=== PATIENT | male | born 1950 | race Caucasian/White ===

== ENCOUNTER → 2018-03-17 | Outpatient (CLI) | payer MEDICARE, BC ==
--- NOTE | 2018-03-17 09:56 | RADIOLOGY REPORT (SQ) ---
EXAM DESCRIPTION: MRI LT LOWER JOINT WITHOUT COMPLETED DATE/TIME: 03/17/2018 8:10 am REASON FOR STUDY: PAIN IN LEFT KNEE (M25.562) M25.562 PAIN IN LEFT KNEE COMPARISON: None. TECHNIQUE: Leftknee images acquired and stored on PACS. Multiplanar images include fat sensitive se quences as T1, water sensitive sequences as FST2 or STIR, cartilage sensitive sequences as FSPD, and gradient echo sequences. LIMITATIONS: None. FINDINGS: JOINT AND BURSAE: No effusion. BONE CORTEX AND MARROW: No alteration of signal to suggest marrow replacement. No worrisome bone lesi ons. No occult fracture. ACL: Intact. No degeneration or ganglion cyst. PCL: Intact. MCL: Intact. No periligamentous edema or fluid. LCL: Intact. No periligamentous edema or fluid. MEDIAL MENISCUS: Extensive complex tear posterior horn and root. Mild extrusion. LATERAL MENISCUS: No tears. No abnormal signal. MEDIAL COMPARTMENT: Generalized slightly irregular chondral thinning without measurable focal defects or reactive bone cysts. No significant osteophytes. LATERAL COMPARTMENT: Mild generalized thinning without focal defects or reactive bone change. PATELLA: Normal patellar location. Mild chondral thinning without focal defects or reactive bone cys ts. EXTENSOR MECHANISM: Intact. Quadriceps and patella tendons normal. SOFT TISSUES: Adjacent muscles and subcutaneous tissues normal. Normal flow void in popliteal artery and vein. OTHER: No other significant finding. IMPRESSION: 1. Medial meniscus tear. TECHNICAL DOCUMENTATION: JOB ID: [id number] [employer]- All Rights Reserved Reading location - IP/workstation name: [email or web address]
== END ==
LOC: RAD 07:02
PROVIDERS: ATTEND Orthopaedic Surgery
DX: M25.562 Pain in left knee (principal); S83.242A Other tear of medial meniscus, current injury, left knee, initial encounter; X58.XXXA Exposure to other specified factors, initial encounter

== ENCOUNTER → 2019-11-10 | Outpatient (CLI) | payer MEDICARE, BC ==
--- NOTE | 2019-11-11 09:04 | RADIOLOGY REPORT (SQ) ---
EXAM DESCRIPTION: MRI LUMBAR SPINE WITHOUT COMPLETED DATE/TIME: 11/10/2019 4:56 pm REASON FOR STUDY: M54.5 LOW BACK PAIN M54.5 LOW BACK PAIN COMPARISON: None. TECHNIQUE: Sagittal and Axial imaging includes T1, T2, STIR and gradient echo sequences. Coronal T2/ HASTE imaging. LIMITATIONS: Motion. FINDINGS: VISUALIZED UPPER ABDOMEN: Limited evaluation. No acute or suspicious findings suggested. SEGMENTATION: No transitional anatomy. The lowest well-developed disc space is labeled L5-S1. ALIGNMENT: Moderate sigmoid scoliosis. Slight anterolisthesis of L2 relative to L1. VERTEBRAE: Intact. BONE MARROW: Normal. No marrow replacement or reactive changes. DISC SIGNAL: Desiccation multiple levels. POSTERIOR ELEMENTS: Generally intact. No pars defect evident. HARDWARE: None in the spine. CORD AND CONUS: Normal in size and signal intensity. Conus at the appropriate level. SOFT TISSUES: No aortic aneurysm seen. No bulky retroperitoneal adenopathy or mass. No paraspinal mas s or fluid. L1-L2: Mild spinal stenosis due to disc bulge, malalignment and facet arthropathy. Mild neural bonnie inal narrowing bilaterally. L2-L3: Mild spinal stenosis. Mild neural foraminal narrowing bilaterally. L3-L4: Mild spinal stenosis. Moderate neural foraminal narrowing bilaterally. L4-L5: Mild spinal stenosis. Small central disc protrusion. Moderate neural foraminal narrowing skylar aterally. L5-S1: Central annular fissure. Facet arthropathy. Mild neural foraminal narrowing bilaterally. LOWER THORACIC: Incompletely imaged. No stenosis seen. SACRUM: Visualized upper sacrum intact. OTHER: No other significant findings. IMPRESSION: Spondylosis, facet arthropathy and malalignment. Mild spinal stenosis at multiple level s. TECHNICAL DOCUMENTATION: JOB ID: [id number] 2010 [employer]- All Rights Reserved Reading location - IP/workstation name: [email or web address]
== END ==
LOC: RAD 13:53
PROVIDERS: ATTEND Orthopaedic Surgery
DX: M54.5 Low back pain (principal)
CPT/HCPCS: 72148

== ENCOUNTER 2020-03-11 07:44 | Emergency (ER) | payer MEDICARE, BC ==
[2020-03-11 08:00] LABS: ABSOLUTE BASOPHILS # (AUTO) 0.1 10^3/uL (0.0-0.2); ABSOLUTE EOSINOPHILS # (AUTO) 0.2 10^3/uL (0.0-0.6); ABSOLUTE MONOCYTES (AUTO) 0.5 10^3/uL (0.1-1.4); ABSOLUTE NEUT (AUTO) 7.2 10^3/uL (1.7-8.2); BASOPHILS % (AUTO) 0.8 % (0-2); EOSINOPHILS % (AUTO) 1.9 % (0-6); HEMATOCRIT 40.9 % (37.9-51.0); HEMOGLOBIN 13.9 g/dL (13.5-17.0); LYMPHOCYTES % (AUTO) 19.9 % (13-45); MEAN CORPUSCULAR HEMOGLOBIN 31.4 pg (27.0-33.4); MEAN CORPUSCULAR VOLUME 93 fl (80-97); MONOCYTES % (AUTO) 5.2 % (3-13); PLATELET COUNT 228 10^3/uL (150-450); RED BLOOD COUNT 4.42 10^6/uL (4.35-5.55); RED CELL DISTRIBUTION WIDTH 14.5 % (11.5-14.0); SEGMENTED NEUTROPHILS % (AUTO) 72.2 % (42-78); TOTAL CELLS COUNTED % (AUTO) 100 %
[2020-03-11 08:21] LABS: ALKALINE PHOSPHATASE 70 U/L (38-126); ANION GAP 8 (5-19); ASPARTATE AMINO TRANSFERASE 21 U/L (17-59); BILIRUBIN,TOTAL 0.6 mg/dL (0.2-1.3); BLOOD UREA NITROGEN 14 mg/dL (7-20); CALCIUM 8.9 mg/dL (8.4-10.2); CARBON DIOXIDE 24 mmol/L (22-30); CHLORIDE 105 mmol/L (98-107); CREATINE KINASE 58 U/L (55-170); GLUCOSE 137 mg/dL (75-110); POTASSIUM 4.1 mmol/L (3.6-5.0); TOTAL PROTEIN 6.9 g/dL (6.3-8.2)
[2020-03-11 08:33] LABS: CREATINE KINASE MB 0.42 ng/mL (<4.55)
[2020-03-11 08:36] LABS: TROPONIN I < 0.012 ng/mL
--- NOTE | 2020-03-11 08:37 | RADIOLOGY REPORT (SQ) ---
EXAM DESCRIPTION: CHEST SINGLE VIEW IMAGES COMPLETED DATE/TIME: 03/11/2020 8:19 am REASON FOR STUDY: chest pain COMPARISON: None. EXAM PARAMETERS: NUMBER OF VIEWS: One view. TECHNIQUE: Single frontal radiographic view of the chest acquired. RADIATION DOSE: NA LIMITATIONS: None. FINDINGS: LUNGS AND PLEURA: No opacities, masses or pneumothorax. No pleural effusion. MEDIASTINUM AND HILAR STRUCTURES: No masses. Contour normal. HEART AND VASCULAR STRUCTURES: Heart normal in size. Normal vasculature. BONES: No acute findings. HARDWARE: None in the chest. OTHER: No other significant finding. IMPRESSION: NO ACUTE RADIOGRAPHIC FINDING IN THE CHEST. TECHNICAL DOCUMENTATION: JOB ID: [id number] 2010 [employer]- All Rights Reserved Reading location - IP/workstation name: [email or web address]
[2020-03-11] MEDS ORDERED: ASPIRIN 81 MG TABLET, CHEWABLE PO ONE (08:55)
--- NOTE | 2020-03-11 10:06 | EKG REPORT ---
SEVERITY:- ABNORMAL ECG - SINUS RHYTHM INCOMPLETE RIGHT BUNDLE BRANCH BLOCK : Confirmed by: Boy Garay MD 11-Mar-2020 10:04:56
[2020-03-11 11:04] VITALS: BP 117/73
--- NOTE | 2020-03-11 12:09 | ER Document Report ---
Entered by LO AGUILAR SCRIBE 03/11/20 0835 Acting as scribe for:BEULAH ARAGON MD ED Respiratory Problem - General Chief Complaint: Shortness Of Breath Stated Complaint: SHORTNESS OF BREATH Time Seen by Provider: 03/11/20 08:00 Primary Care Provider: NEREYDA AMADOR MD [Primary Care Provider] - Follow up as needed Mode of Arrival: Ambulatory Information source: Patient Notes: This 69 year old male patient presents to the emergency department today with complaints of shortness of breath. Patient states that he had just woken up and was walking down some stairs to make a cup of coffee when the symptoms began. Patient states his symptoms today are "absolutely identical" to symptoms he had in 2006 when he had his first OH. Patient states that he became very short of breath, was cool and clammy, had an elevated heart rate, felt lightheaded, and had some nausea when these symptoms began. Patient denies any chest pain during this episode. Patient states he had no chest pain for his first OH either. Patient states he took 1 NTG and called EMS. Patient states the symptoms lasted for approximately 30 minutes. TRAVEL OUTSIDE OF THE [place] IN LAST 30 DAYS: No - Related Data Allergies/Adverse Reactions: No Known Allergies Allergy (Unverified 03/11/20 08:15) Past Medical History - General Information source: Patient - Social History Smoking Status: Former Smoker - quit in 2006 Cigarette use (# per day): No Frequency of alcohol use: None Drug Abuse: None Lives with: Family Family History: Reviewed & Not Pertinent - Past Medical History Cardiac Medical History: Reports: Hx Congestive Heart Failure, Hx Coronary Artery Disease, Hx Heart Attack, Hx Hypercholesterolemia, Hx Hypertension Pulmonary Medical History: Reports: Hx COPD Past Surgical History: Reports: Hx Cardiac Surgery - stent Review of Systems - Review of Systems Constitutional: See HPI, Diaphoresis EENT: No symptoms reported Cardiovascular: Heart racing, Lightheaded. denies: Chest pain Respiratory: See HPI, Short of breath Gastrointestinal: No symptoms reported Genitourinary: No symptoms reported Male Genitourinary: No symptoms reported Musculoskeletal: No symptoms reported Skin: No symptoms reported Hematologic/Lymphatic: No symptoms reported Neurological/Psychological: No symptoms reported -: Yes All other systems reviewed and negative Physical Exam - Vital signs Vitals: Pulse Ox 96 03/11/20 08:00 - Notes Notes: Physical Exam: General: Alert, appears well. HEENT: Normocephalic. Atraumatic. PERRL. Extraocular movements intact. Oropharynx clear. Neck: Supple. Non-tender. Respiratory: No respiratory distress. Clear and equal breath sounds bilaterally. Cardiovascular: Regular rate and rhythm. Abdominal: Obese. Non-tender. No distension. Normal Bowel Sounds. Back: No gross abnormalities. Extremities: Moves all four extremities. Upper extremities: Normal inspection. Normal ROM. Lower extremities: Normal inspection. No edema. Normal ROM. Neurological: Normal cognition. AAOx4. Normal speech. Psychological: Normal affect. Normal Mood. Skin: Warm. Dry. Normal color. Course - Re-evaluation Re-evalutation: 03/11/20 12:03 Patient resting comfortably not showing any signs of distress vital signs are stable heart rate 77 saturations 97% 03/11/20 12:05 Patient walked the hallway briskly up and down x2 without any signs of distress denied any shortness of breath chest pain nausea or any pain in his back or jaw. - Vital Signs Vital signs: Temp Pulse Resp BP Pulse Ox 97.6 F 14 117/73 96 03/11/20 08:08 03/11/20 11:00 03/11/20 11:00 03/11/20 11:00 03/11/20 12:03 Vital signs stable blood pressure 117/73 - Laboratory Result Diagrams: 03/11/20 07:24 03/11/20 07:24 Laboratory results interpreted by me: 03/11/20 03/11/20 07:24 07:24 RDW 14.5 H Glucose 137 H 03/11/20 12:04 Troponin x2 both negative. - Diagnostic Test Radiology reviewed: Image reviewed, Reports reviewed Radiology results interpreted by me: 03/11/20 12:05 Chest x-ray normal no acute process no infiltrate. - EKG Interpretation by Me Additional EKG results interpreted by me: 03/11/20 12:05 Twelve-lead EKG normal sinus rhythm incomplete right bundle branch block. Discharge - Discharge Clinical Impression: Shortness of breath on exertion, COPD (chronic obstructive pulmonary disease), Coronary artery disease Condition: Stable Disposition: HOME, SELF-CARE Additional Instructions: Chronic Obstructive Lung Disease You have chronic obstructive lung disease (COPD). The symptoms come from emphysema (damage to small airways, with trapping of air in large sacks in the lung) and chronic bronchitis (repeated infection and damage to larger airways). The cause is almost always cigarette smoking, although dust exposure, asthma, and infections contribute. You should avoid fumes, dust, and smoke (especially tobacco smoke). Your condition will flare from time to time. There is no cure, but the symptoms can be treated. Bronchodilators (asthma medicine) are often helpful. Antibiotics help when infection is present. When shortness of breath is severe, we may prescribe cortisone medication. If medicine doesn't help enough, we can arrange for you to have an oxygen tank at home. Notify your doctor at once if sputum becomes thick, foul, or bloody, if you develop a fever or chest pain, or if your shortness of breath worsens. Today you had shortness of breath and some palpitations after you had walked down your staircase upon arising this morning. EMS was called because you felt as though this was similar to your first heart attack back in 2006. Inasmuch as you have cardiac stents present you certainly do have coronary artery disease and and you have other risk factors as well. However today there is no evidence that this is been a cardiac event of any significance there is been negative x2 troponin and your labs and vital signs have been completely stable during out this evaluation chest x-ray shows no acute process either and in addition you passed a poor man stress test by walking up and down the [place] twice without showing any discomfort or abnormalities in your vital signs. 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 Referrals: NEREYDA AMADOR MD [Primary Care Provider] - Follow up as needed I personally performed the services described in the documentation, reviewed and edited the documentation which was dictated to the scribe in my presence, and it accurately records my words and actions.
== END 2020-03-11 12:13 | disposition home or self-care (01) ==
LOC: ER 07:44
DX: R06.02 Shortness of breath (principal); J44.9 Chronic obstructive pulmonary disease, unspecified; I25.10 Atherosclerotic heart disease of native coronary artery without angina pectoris; I25.2 Old myocardial infarction; R00.0 Tachycardia, unspecified; R42 Dizziness and giddiness; R11.0 Nausea; I50.9 Heart failure, unspecified; I11.0 Hypertensive heart disease with heart failure; Z87.891 Personal history of nicotine dependence
CPT/HCPCS: 93005; 99285; 36415; 82553; 82550; 85025; 80053; 84484; 71045; 93010; A9270